=== PATIENT | male | born 1965 | race Caucasian/White ===

== ENCOUNTER 2017-04-24 13:49 | Observation (INO) | payer OTHER ==
[2017-04-24] MEDS ORDERED: MELATONIN 3 MG TABLET PO PRN (16:24)
[2017-04-24] MEDS ORDERED: MAG HYDROX/AL HYDROX/SIMETH 30 ML CUP PO PRN (16:24)
[2017-04-24] MEDS ORDERED: ALPRAZolam 0.25 MG TAB PO PRN (16:24)
[2017-04-24] MEDS ORDERED: NALOXONE 0.4 MG/ML 1 ML VIAL IV PRN (16:24)
[2017-04-24] MEDS ORDERED: ONDANSETRON 4 MG/2 ML VIAL IVP PRN (16:24)
[2017-04-24] MEDS ORDERED: SODIUM CHLORIDE 0.9% 1,000 ML IV SCH (16:30)
[2017-04-24] MEDS ORDERED: HYDROmorphone 1 MG/ML 1 ML SYRINGE IVP PRN (16:53)
[2017-04-24] MEDS ORDERED: TEMAZEPAM 15 MG CAP PO PRN (16:53)
[2017-04-24 16:54] LABS: Basophils % (A) 1 %; CH 34.3; CHCM 35.9; Eosinophils % (A) 0 %; HCT 46.7 % (39.0-53.0); HDW 2.34; HGB 16.2 gm/dL (13.0-17.5); Luc # (Auto) 0.11; Luc % (Auto) 2; Lymphocytes # (A) 1.5 k/uL (1.0-4.8); Lymphocytes % (A) 23 %; MCH 33.1 pg (25.0-35.0); MCHC 34.6 g/dL (31.0-37.0); MCV 95.8 fL (80.0-100.0); Mean Platelet Volume 6.2; Monocytes # (A) 0.2 k/uL (0-1.0); Monocytes % (A) 3 %; Neutrophils # (A) 4.7 k/uL (1.3-7.7); Neutrophils % (A) 72 %; RBC 4.88 m/uL (4.30-5.90); RDW 13.5 % (11.5-15.5); WBC 6.5 k/uL (3.8-10.6); WBC (Perox) 6.03
[2017-04-24] MEDS ORDERED: LORazepam 1 MG TAB PO PRN (17:09)
[2017-04-24] MEDS ORDERED: SUMAtriptan SUCCINATE 50 MG TAB PO PRN (17:09)
[2017-04-24] MEDS ORDERED: CYCLOBENZAPRINE 10 MG TAB PO PRN (17:09)
[2017-04-24 17:19] LABS: ALT 17 U/L (21-72); AST 14 U/L (17-59); Alkaline Phosphatase 99 U/L (38-126); Anion Gap 8 mmol/L; Blood Urea Nitrogen 6 mg/dL (9-20); Carbon Dioxide 26 mmol/L (22-30); Chloride 99 mmol/L (98-107); Glucose 92 mg/dL (74-99); Magnesium 2.1 mg/dL (1.6-2.3); Non-African American GFR(MDRD) >60 (>60 ml/min/1.73 sqM); Phosphorous 3.9 mg/dL (2.5-4.5); Potassium 4.7 mmol/L (3.5-5.1); Sodium 133 mmol/L (137-145); Total Bilirubin 0.6 mg/dL (0.2-1.3); Total Protein 6.9 g/dL (6.3-8.2)
--- NOTE | 2017-04-24 17:27 | CT ---
EXAMINATION TYPE: CT brain wo con DATE OF EXAM: 04/24/2017 COMPARISON: NONE HISTORY: Seizure. CT DLP: 1054.2 mGycm. Automated Exposure Control for Dose Reduction was Utilized. TECHNIQUE: CT scan of the head is performed without contrast. FINDINGS: There is no acute intracranial hemorrhage, mass effect, or midline shift identified. The ventricles and sulci are within normal limits in size. The globes are intact and the visualized sin uses are clear. IMPRESSION: No acute intracranial hemorrhage, mass effect, or midline shift is seen. Unremarkable st udy.
[2017-04-24] MEDS: NICOTINE 14MG/24HR PATCH TRANSDERM SCH (18:00)
[2017-04-24] MEDS: levETIRAcetam 500 MG TAB PO SCH ×2 (18:00→20:37)
[2017-04-24] MEDS: DOCUSATE 100 MG CAP PO SCH (20:34)
[2017-04-24] MEDS: carBAMazepine 300 MG CPMP.12HR PO SCH (20:35)
[2017-04-24] MEDS: HEPARIN SODIUM,PORCINE 5,000 UNIT/ML 1 ML VIAL SQ SCH (20:35)
[2017-04-24] MEDS: ATORVASTATIN 10 MG TAB PO SCH (20:36)
[2017-04-24] MEDS: DONEPEZIL 10 MG TAB PO SCH (20:36)
[2017-04-24] MEDS: MELOXICAM 7.5 MG TAB PO SCH (20:36)
[2017-04-24] MEDS: MEMANTINE 10 MG TAB PO SCH (20:37)
[2017-04-24] MEDS: traZODone HCL 100 MG TAB PO SCH (20:37)
[2017-04-24] MEDS: PREGABALIN 100 MG CAP PO SCH (20:44)
[2017-04-24 21:38] LABS: Appearance,Urine Clear (Clear); Bilirubin,Urine Negative (Negative); Glucose,Urine (UA) Negative (Negative); Ketones,Urine Negative (Negative); Leukocyte Esterase,Urine Negative (Negative); Nitrite,Urine Negative (Negative); Protein,Urine Negative (Negative); Specific Gravity,Urine 1.006 (1.001-1.035); UA Billing (MACRO vs. MICRO) CHEM
[2017-04-25] MEDS: levETIRAcetam 500 MG TAB PO SCH ×5 (05:17→20:39)
--- NOTE | 2017-04-25 08:28 | HP ---
DATE OF ADMISSION: CHIEF COMPLAINT: Vomiting. HISTORY OF PRESENT ILLNESS: This 51-year-old gentleman with a past medical history of multiple medical problems including seizure disorder, history of headaches, history of anxiety, depression, history of hyperlipidemia, being followed Dr. Keesha Prescott and as well as primary neurologist in [facility], presented to [facility] this morning with complaints of vomiting. The patient had multiple episodes of vomiting this morning and the patient's sodium was found to be 124. Because of concerns of SAIDH patient was transferred to [facility] as a direct admission after my discussion with Dr. Rose over the phone. There is no history of fever, rigors, no history of headache, loss of consciousness or seizure. The patient recently had increase of trazodone 25 to 50 mg daily. Otherwise, there is no history of fever, rigors or chills. PAST MEDICAL HISTORY: History of seizure disorder, history of anxiety, depression, history of hyperlipidemia. Medications prior to admission include: 2. Keppra 1000 mg p.o. q.i.d. 3. Celexa 40 mg p.o. daily. 4. Risperdal 0.5 mg q.h.s. 5. Strattera 40 mg p.o. q.h.s. 6. Aricept 10 mg p.o. daily at bedtime. 7. Vitamin D3 2000 daily. 8. Mobic 15 mg p.o. once daily. 9. Latuda 20 mg p.o. daily. 10. Namenda XR 10 mg p.o. b.i.d. 11. Lyrica 100 mg p.o. b.i.d. 12. Flexeril 10 mg q.h.s. p.r.n. 13. Trazodone 100 mg p.o. daily. 14. Colace 100 mg p.o. b.i.d. 15. Sumatriptan 50 mg daily. 16. Ativan 1 mg b.i.d. p.r.n. 17. Simvastatin 20 mg daily. ALLERGIES: None. FAMILY HISTORY: No history of heart disease or strokes in the family. SOCIAL HISTORY: History of smoking. No history of alcohol intake. REVIEW OF SYSTEMS: ENT: No diminishing hearing. No diminished vision. CARDIOVASCULAR: No angina. RESPIRATORY: No cough, hemoptysis. GI: As mentioned earlier. : No dysuria. NERVOUS SYSTEM: No numbness, weakness. ALLERGY/IMMUNOLOGY: No asthma. MUSCULOSKELETAL: As mentioned earlier. HEMATOLOGY/ONCOLOGY: No history of anemia. ENDOCRINE: As mentioned earlier. CONSTITUTIONAL: As mentioned earlier. DERMATOLOGY: Negative. PSYCHIATRY: As mentioned earlier. PHYSICAL EXAMINATION: Patient is alert, oriented x3. Pulse is 53, blood pressure 149/76, respirations 16, temperature 97.9, pulse ox 90% on room air. HEENT: Conjunctivae normal. NECK: No jugular venous distention. CARDIOVASCULAR: S1 and S2, muffled. RESPIRATORY: Breath sounds diminished at the bases. No rhonchi, no crackles. ABDOMEN: Soft, nontender. No mass palpable. LEGS: No edema, no swelling. NERVOUS SYSTEM: Higher function as mentioned. Cranial nerves II through XII grossly intact. Moves all four limbs. No focal motor deficits. LYMPHATIC: No lymphadenopathy in the neck, axillae or groin. SKIN: No ulcer, rash or bleeding. LABS: Awaited. Sodium 124. Previous labs noted. ASSESSMENT: 1. Hyponatremia for evaluation, rule out syndrome of inappropriate antidiuretic hormone secretion. 2. Vomiting, possible acute gastritis. 3. Seizure disorder. 4. Chronic back pain and degenerative joint disease. 5. History of vagus nerve stimulator. 6. History of depression, not otherwise specified. 7. History of nicotine dependence. 8. History of hyperlipidemia. 9. FULL CODE. RECOMMENDATIONS AND DISCUSSION: In this 51-year-old gentleman who presented with multiple complex medical issues, will monitor the patient closely. Symptomatic treatment. Baseline labs. Otherwise, will also get a urine sodium and urine specific gravity. Otherwise, other than that nephrology evaluation. Neurology evaluation. Guarded prognosis. Otherwise, continue to monitor. See orders for details. Will resume the home medication. Further recommendations to follow. MTDD
[2017-04-25] MEDS ORDERED: NON-FORMULARY DRUG (Atomoxetine Hcl [Strattera] 40 MG) PO SCH (09:00)
[2017-04-25 09:03] LABS: Basophils % (A) 0 %; CH 34.4; CHCM 34.9; Eosinophils % (A) 0 %; HCT 48.2 % (39.0-53.0); HDW 2.32; Luc # (Auto) 0.17; Luc % (Auto) 3; Lymphocytes # (A) 1.5 k/uL (1.0-4.8); Lymphocytes % (A) 29 %; MCH 32.9 pg (25.0-35.0); MCHC 33.2 g/dL (31.0-37.0); MCV 99.2 fL (80.0-100.0); Mean Platelet Volume 6.3; Monocytes # (A) 0.3 k/uL (0-1.0); Monocytes % (A) 6 %; Neutrophils # (A) 3.2 k/uL (1.3-7.7); Neutrophils % (A) 62 %; RBC 4.86 m/uL (4.30-5.90); RDW 13.7 % (11.5-15.5); WBC 5.2 k/uL (3.8-10.6); WBC (Perox) 5.19
[2017-04-25 09:29] LABS: Anion Gap 10 mmol/L; Blood Urea Nitrogen 9 mg/dL (9-20); Calcium 8.9 mg/dL (8.4-10.2); Carbon Dioxide 26 mmol/L (22-30); Chloride 102 mmol/L (98-107); Glucose 82 mg/dL (74-99); Non-African American GFR(MDRD) >60 (>60 ml/min/1.73 sqM); Potassium 4.3 mmol/L (3.5-5.1); Sodium 138 mmol/L (137-145)
[2017-04-25] MEDS: carBAMazepine 300 MG CPMP.12HR PO SCH ×2 (09:31→20:37)
[2017-04-25] MEDS: CITALOPRAM HYDROBROMIDE 20 MG TAB PO SCH (09:32)
[2017-04-25] MEDS: NICOTINE 14MG/24HR PATCH TRANSDERM SCH (09:33)
[2017-04-25] MEDS: MEMANTINE 10 MG TAB PO SCH ×2 (09:33→20:39)
[2017-04-25] MEDS: LURASIDONE 40 MG TAB PO SCH (09:33)
[2017-04-25] MEDS: HEPARIN SODIUM,PORCINE 5,000 UNIT/ML 1 ML VIAL SQ SCH ×2 (09:33→20:38)
[2017-04-25] MEDS: PREGABALIN 100 MG CAP PO SCH ×2 (09:34→20:37)
[2017-04-25] MEDS: DOCUSATE 100 MG CAP PO SCH ×2 (09:44→20:38)
[2017-04-25] MEDS: CHOLECALCIFEROL 1,000 UNIT TAB PO SCH (12:42)
--- NOTE | 2017-04-25 14:38 | P.CNNES ---
History of Present Illness Consult date: 04/25/17 Requesting physician: Baldemar Gonzalez Reason for Consult: Seizure Chief complaint: Altered mental status History of Present Illness: Patient is a 51-year-old male who is being consult by neurology for hyponatremia and altered mental status/seizure. Patient was placed on trazodone 100 mg by outside provider. This was increased to 50 mg twice a day. Initially upon increased dosing, the patient began experiencing nausea vomiting and GI discomfort. Patient then reduced dosing to 75 mg on his own and symptoms disappeared. Patient then began titrating back up to the 100 mg dose level and at 100 mg the symptoms returned. Patient was brought to [facility] for evaluation and treatment and then transferred our facility. It was noted that the patient was hyponatremic and has a history of vagal nerve stimulator for seizure history. Patient has a seizure history from his teens and [facility]. She has a [employer]tronic vagal nerve stimulator which was placed in him at approximately age 18. Patient states that the device has not needed emergency activation and he has had no breakthrough seizures. Patient states he does have a minimum of 15 seizures that are managed by the vagal nerve stimulator on a daily basis. He denies numbness tingling, vision changes, disorientation, gait dysfunction or other neurological changes consistent with possible seizure activity. On contact, the patient was supine in bed resting, in no acute distress and alert and oriented 3. Review of Systems Systems not noted in HPI or negative. Past Medical History Past Medical History: Seizure Disorder Additional Past Medical History / Comment(s): last seizure about 1 year ago. chronic back pain History of Any Multi-Drug Resistant Organisms: None Reported Additional Past Surgical History / Comment(s): vagus nerve stimulator placed 1986 Past Anesthesia/Blood Transfusion Reactions: No Reported Reaction Past Psychological History: Depression Smoking Status: Current every day smoker Past Alcohol Use History: None Reported Past Drug Use History: None Reported Medications and Allergies Home Medications Medication Instructions Recorded Confirmed Type Atomoxetine HCl [Strattera] 40 mg PO DAILY 04/24/17 04/25/17 History Cholecalciferol (Vitamin D3) 2,000 units PO DAILY 04/24/17 04/25/17 History [Vitamin D3] Citalopram Hydrobromide [CeleXA] 40 mg PO DAILY 04/24/17 04/25/17 History Cyclobenzaprine [Flexeril] 10 mg PO HS PRN 04/24/17 04/25/17 History Docusate [Colace] 100 mg PO BID 04/24/17 04/25/17 History Donepezil [Aricept] 10 mg PO HS 04/24/17 04/25/17 History LORazepam [Ativan] 1 mg PO BID PRN 04/24/17 04/25/17 History Lurasidone HCl [Latuda] 20 mg PO DAILY 04/24/17 04/25/17 History Meloxicam [Mobic] 15 mg PO HS 04/24/17 04/25/17 History Memantine HCl [Namenda] 10 mg PO BID 04/24/17 04/25/17 History Pregabalin [Lyrica] 100 mg PO BID 04/24/17 04/25/17 History SUMAtriptan SUCCINATE [Imitrex] 50 mg PO BID PRN 04/24/17 04/25/17 History Simvastatin 20 mg PO HS 04/24/17 04/25/17 History carBAMazepine [carBAMazepine ER] 600 mg PO BID 04/24/17 04/25/17 History levETIRAcetam [Keppra] 1,000 mg PO QID 04/25/17 04/25/17 History levETIRAcetam [Keppra] 500 mg PO HS 04/25/17 04/25/17 History traZODone HCL [Desyrel] 100 mg PO HS 04/25/17 04/25/17 History Allergies Allergy/AdvReac Type Severity Reaction Status Date / Time No Known Allergies Allergy Verified 04/25/17 08:46 Physical Examination - Vital Signs Vital Signs: Vital Signs Temp Pulse Resp BP Pulse Ox 04/25/17 07:00 97.7 F 46 L 20 154/72 99 04/24/17 23:00 97.5 F L 44 L 17 125/74 98 04/24/17 15:42 97.1 F L 53 L 16 149/71 96 Intake and Output 04/24/17 04/25/17 04/25/17 22:59 06:59 14:59 Intake Total 520 Balance 520 Intake: Oral 520 Other: Voiding Method Toilet # Voids 1 1 2 Weight 66 kg Constitutional: AOx3, cooperative HEENT: NC/AT, no facial asymmetry is seen. Throat: Supple, no masses Respiratory: No increased work of breathing Cardiac: Regular rate and Rhythm GI: non tender, non distended Musculoskeletal: Tile Installer strengths are equal bilaterally 4/5, Lower extremity strengths are equal bilaterally at 4/5. Left lower extremity muscle atrophy noted on physical exam. Neurological: CN II-XII in tact, patient was AOx3, speech and language are normal, no unilateralizing weakness, no seizure activity note on physical exam. Sensation was normal. Integementary: no rash, no erythema Psychiatric: mood and affect appropriate Results - Laboratory Findings CBC and BMP: 04/25/17 08:08 04/25/17 08:08 Abnormal Lab Findings: Abnormal Labs 04/24/17 16:45 Sodium 133 L BUN 6 L Creatinine 0.60 L AST 14 L ALT 17 L Assessment and Plan (1) Medication adverse effect Status: Acute (2) Electrolyte imbalance Status: Acute (3) Altered mental status Status: Acute (4) Seizure disorder Status: Acute Plan: 1. Medication reaction 2. Electrode imbalancehyponatremia 3. Altered mental status 4. Seizure disorder Patient was prescribed trazodone 100 mg by outside provider. Patient was doing well with trazodone 50 mg but was recently increased to 100 mg. After attempts to implement the 100 mg dosing, patient returned to 75 mg dosing and adverse effects ceased. When patient attempted to increase dosing to recommended 100 mg symptoms returned. Symptoms included nausea vomiting and other GI discomfort. Symptoms are consistent with medication dosing adverse reaction. Electrolyte imbalance hyponatremia: Manage underlying etiology, Nausea vomiting and GI upset. Altered mental status: Appears related to electrolyte imbalance as noted above as well as medication interaction And not related to seizure. Seizure disorder: Patient does have an extensive history of seizure disorder that is actively managed on a regular basis with [facility] as well as implanted vagal nerve stimulator. Rescue device was not implemented on the stimulator, stimulator is functioning appropriately per patient and no breakthrough seizures have occurred. At this time no further neurological workup related to seizure disorder is warranted As patient does not appear to have experienced any seizure activity that has not been controlled by his device. Patient was recommended to follow-up with his normal neurologist once discharged for device interrogation. Patient does utilize Medtronic vagal nerve stimulator. Patient is cleared from a neurological standpoint. Neurology will follow on an as-needed basis while the patient is inpatient. Patient to contact our office if you any questions. I discussed the patient's pertinent medical information with Dr. Minor. He agrees with the plan of care as implemented.
--- NOTE | 2017-04-25 15:40 | CONS ---
DATE OF CONSULTATION: REASON FOR ADMISSION: Vomiting with hyponatremia. The patient is a 51-year-old male with a past medical history significant for seizure, anxiety, depression. Patient on multiple psych and antiseizure medications. He presented to [facility] yesterday with episode of vomiting, was unable to keep anything down. At admission was found to have a sodium of 124. Given his medications history they were concerned for SIADH for which he was transferred further to [facility]. Labs over here showed sodium of 133. Nephrology consultation has been asked for the management of hyponatremia. I did review the patient's labs yesterday and placed orders for urine studies were still not done. Labs this morning are pending. He has been maintained on gentle IV hydration. Although risk for SIADH it seems more related to hypovolemia from his vomiting. He is clinically doing much better. He wants to go home. No overnight events. Tolerated his breakfast today. Outpatient he was recently got his trazodone increased from 25 to 50 mg. At present he is getting carbamazepine, Celexa which all can contribute to SIADH. However, he admits not keeping his free water intake anywhere from 1.2 to 1.5 liters at home. Denies any sick contacts or eating anything from outside. At present feeling at his baseline. No other overnight events. ALLERGIES: No known drug allergies. MEDICATIONS: At present, [place], Maalox, Xanax, Lipitor, carbamazepine, vitamin D3, Celexa, Flexeril, Colace, Aricept, heparin, Dilaudid, Keppra, Ativan, Latuda, melatonin, meloxicam, Namenda, Narcan, Lyrica, sumatriptan, temazepam, trazodone. PAST MEDICAL HISTORY: 1. Seizures. 2. Depression. 3. Anxiety. 4. Hyperlipidemia. 5. Chronic headaches. PAST SURGICAL HISTORY: None per patient. SOCIAL HISTORY: Positive smoking. No alcohol intake. FAMILY HISTORY: No significant family history of kidney problems. REVIEW OF SYSTEMS: Constitutional symptoms: No fever. No chills. Review of other systems negative. Pertinent findings as per history of present illness. PHYSICAL EXAMINATION: VITAL SIGNS: Afebrile, blood pressure 154/72, pulse rate 46 per minute, sats 96 on room air. GENERAL: The patient lying comfortably in bed. No acute distress. LUNGS: Clear to auscultation bilaterally. CARDIOVASCULAR: Regular rate and rhythm. S1, S2. ABDOMEN: Soft, nontender. EXTREMITIES: Bilateral pulses, no edema. LABS: Not done. IMPRESSION: 1. Hypoosmolar hyponatremia, though very high risk for SIADH, clinically seems more related to hypovolemia in the setting of vomiting. Status post IV hydration, sodium improved from 124 to 133 yesterday. Repeat labs pending today. 2. Incidental bradycardia noted. Recommend monitoring. No triggering factors. Can consider cardiology evaluation. 3. History of seizures stable at present and okay to continue antiseizure medications at present. RECOMMENDATIONS: 1. Check BMP today. If sodium stable or continues to improve, from nephro standpoint patient can be discharged any time. 2. Encourage the patient to have free water restriction 1.2 to 1.5 liters at home given high risk SIADH. 3. If the patient is discharged today, recommend follow-up BMP in 2 to 3 days to make sure sodium continues to remain stable. Thank you, Dr. Gonzalez for allowing me to participate in this patient. We will follow the patient along with you.
[2017-04-25] MEDS: traZODone HCL 100 MG TAB PO SCH (20:36)
[2017-04-25] MEDS: DONEPEZIL 10 MG TAB PO SCH (20:38)
[2017-04-25] MEDS: ATORVASTATIN 10 MG TAB PO SCH (20:38)
[2017-04-25] MEDS: MELOXICAM 7.5 MG TAB PO SCH (20:39)
[2017-04-25] MEDS: HYDROcodone/APAP 5-325MG 1 EACH TAB PO PRN (20:45)
[2017-04-26 00:46] VITALS: PULSE 51
[2017-04-26] MEDS: levETIRAcetam 500 MG TAB PO SCH ×4 (05:29→14:05)
[2017-04-26 07:37] VITALS: BP 175/80; RESP 18; TEMP 97.3
[2017-04-26] MEDS: MEMANTINE 10 MG TAB PO SCH (08:09)
[2017-04-26] MEDS: CITALOPRAM HYDROBROMIDE 20 MG TAB PO SCH (08:09)
[2017-04-26] MEDS: carBAMazepine 300 MG CPMP.12HR PO SCH (08:09)
[2017-04-26] MEDS: DOCUSATE 100 MG CAP PO SCH ×2 (08:09→08:15)
[2017-04-26] MEDS: NICOTINE 14MG/24HR PATCH TRANSDERM SCH (08:09)
[2017-04-26] MEDS: LURASIDONE 40 MG TAB PO SCH (08:10)
[2017-04-26] MEDS: HEPARIN SODIUM,PORCINE 5,000 UNIT/ML 1 ML VIAL SQ SCH (08:11)
[2017-04-26] MEDS: PREGABALIN 100 MG CAP PO SCH (08:18)
[2017-04-26] MEDS: HYDROcodone/APAP 5-325MG 1 EACH TAB PO PRN ×2 (08:18→12:12)
[2017-04-26 08:49] LABS: Basophils # (A) 0.1 k/uL (0-0.2); Basophils % (A) 1 %; CH 34.4; CHCM 36.1; Eosinophils % (A) 0 %; HCT 48.4 % (39.0-53.0); Luc # (Auto) 0.09; Luc % (Auto) 2; Lymphocytes # (A) 1.5 k/uL (1.0-4.8); Lymphocytes % (A) 28 %; MCH 33.5 pg (25.0-35.0); MCHC 35.1 g/dL (31.0-37.0); MCV 95.6 fL (80.0-100.0); Mean Platelet Volume 6.5; Monocytes # (A) 0.2 k/uL (0-1.0); Monocytes % (A) 4 %; Neutrophils # (A) 3.5 k/uL (1.3-7.7); Neutrophils % (A) 66 %; RBC 5.07 m/uL (4.30-5.90); RDW 13.4 % (11.5-15.5); WBC 5.3 k/uL (3.8-10.6); WBC (Perox) 5.42
[2017-04-26 09:01] LABS: Anion Gap 12 mmol/L; Blood Urea Nitrogen 11 mg/dL (9-20); Calcium 9.6 mg/dL (8.4-10.2); Carbon Dioxide 26 mmol/L (22-30); Chloride 101 mmol/L (98-107); Glucose 146 mg/dL (74-99); Non-African American GFR(MDRD) >60 (>60 ml/min/1.73 sqM); Potassium 4.2 mmol/L (3.5-5.1); Sodium 139 mmol/L (137-145)
[2017-04-26] MEDS: CHOLECALCIFEROL 1,000 UNIT TAB PO SCH (11:41)
--- NOTE | 2017-04-26 15:23 | PN ---
DATE OF SERVICE: 04/26/2017 This 51-year-old gentleman who was admitted with hyponatremia also had vomiting present on admission. No chest pain, no palpitations. No fever. Neurology and nephrology evaluation in progress at this time. Clinically he was thought to have more of hypovolemia. Sinus bradycardia was also noted. No chest pain, no palpitations. No fever. On exam, alert and oriented x3. Pulse 51, blood pressure 176/91, respirations 16, temperature 98 degrees, pulse ox 91% on room air. HEENT: Conjunctivae normal. NECK: No jugular venous distention. CARDIOVASCULAR: S1 and S2, muffled. RESPIRATORY: Breath sounds diminished at the bases. No rhonchi, no crackles. ABDOMEN: Soft, nontender. LEGS: No edema, no swelling. NERVOUS SYSTEM: No focal deficits. LABS: Sodium 138 and CBC within normal limits. ASSESSMENT: 1. Hyponatremia possibly hypoosmolar and hypovolemic. Syndrome of inappropriate antidiuretic hormone secretion unlikely per Nephrology. 2. Vomiting possibly acute gastritis. 3. Seizure disorder. 4. History of back pain, degenerative joint disease. 5. History of vagus nerve stimulator. 6. History of depression not otherwise specified. 7. Remote history of nicotine dependence. 8. History of hyperlipidemia. 9. FULL CODE. 10. Sinus bradycardia. RECOMMENDATIONS AND DISCUSSION: I recommend to continue the current medications, continue monitoring and symptomatic treatment. Otherwise, repeat labs in the morning. Continue the rest of medications. Closely follow with Nephrology. Guarded prognosis. Further recommendations to follow.
--- NOTE | 2017-04-27 09:34 | DS ---
DATE OF ADMISSION: 04/24/2017 DATE OF DISCHARGE: 04/26/2017 FINAL DIAGNOSES: 1. Hyponatremia, possibly hypovolemic, unlikely to be secondary to syndrome of inappropriate antidiuretic hormone per nephrology. 2. Vomiting, possible acute gastritis. 3. History of seizure disorder. 4. Chronic back pain, degenerative joint disease. 5. History of vagus nerve stimulator. 6. History of depression not otherwise specified. 7. History of nicotine dependence. 8. History of hyperlipidemia. 9. FULL CODE. DISCHARGE DISPOSITION: The patient will be discharged in stable condition with guarded prognosis. HISTORY OF PRESENT ILLNESS: This 51-year-old gentleman with a past medical history of multiple medical problems being followed Dr. Keesha Prescott and was admitted with vomiting. The patient's sensorium low at 134. Improved significantly with volume correction. On exam, vital signs stable. CARDIOVASCULAR SYSTEM: S1, S2 muffled. ABDOMEN: Soft. Nervous system: Mentioned earlier. Nephrology saw the patient. Sodium is 138. DISCHARGE ADVICE AND MEDICATIONS: 1. Diet is cardiac. 2. Activity limited until follow-up. 3. Follow up with Dr. Keesha Prescott in 2 to 3 days. 4. Follow up with neurologist as recommended. 5. Neurologist for adjustment of the seizure medications. 6. Other medications are Strattera 40 mg p.o. daily. 7. Carbamazepine 600 mg p.o. b.i.d. 8. Vitamin D3 2000 daily. 9. Celexa 40 mg daily. 10. Flexeril 10 mg at bedtime p.r.n. 11. Colace 100 mg p.o. b.i.d. 12. Aricept 10 mg q.h.s. 13. Keppra 500 mg q.h.s. and 1000 mg q.i.d. 14. Ativan 1 mg p.o. b.i.d. p.r.n. 15. Latuda 20 mg p.o. daily. 16. Mobic 15 mg q.h.s. 17. Namenda 10 mg p.o. b.i.d. 18. Habitrol 14 daily. 19. Lyrica 100 mg p.o. b.i.d. 20. Simvastatin 20 mg q.h.s. 21. Imitrex 50 mg b.i.d. p.r.n. 22. Desyrel 100 mg p.o. q.h.s. 23. [facility] Dr. Keesha Prescott.
== END 2017-04-26 14:09 | disposition home or self-care (01) ==
LOC: INTOOBSV 15:34 → 4MS4W 15:34
PROVIDERS: ADMIT Hospitalist; ATTEND Hospitalist
DX: E87.0 Hyperosmolality and hypernatremia (principal); R11.10 Vomiting, unspecified; R41.82 Altered mental status, unspecified; G40.909 Epilepsy, unspecified, not intractable, without status epilepticus; M54.9 Dorsalgia, unspecified; F32.9 Major depressive disorder, single episode, unspecified; E78.5 Hyperlipidemia, unspecified; F17.210 Nicotine dependence, cigarettes, uncomplicated; R00.1 Bradycardia, unspecified; G89.29 Other chronic pain; F41.9 Anxiety disorder, unspecified; Z79.899 Other long term (current) drug therapy; F45.42 Pain disorder with related psychological factors
CPT/HCPCS: 96360; 96361 ×2; 96372 ×3; 84300; 80053; 80048 ×2; 83735; 84100; 85025 ×3; 81003; 70450; G0379; G0378 ×3; S4990 ×2; J1644 ×3

== ENCOUNTER → 2017-09-21 | Outpatient (CLI) | payer OTHER ==
--- NOTE | 2017-09-21 16:25 | CT ---
EXAMINATION TYPE: CT lumbar spine wo con DATE OF EXAM: 09/21/2017 COMPARISON: NONE HISTORY: Low back pain CT DLP: 966 mGycm CONTRAST: No contrast TECHNIQUE: CT of the lumbar spine is performed on a spiral scan at 3 mm thick sections. Reconstructed images are performed in the coronal and sagittal planes. FINDINGS: T12-L1: No focal disc herniation or significant disc bulge is evident. No spinal canal stenosis or neural foraminal stenosis is present. L1-L2: No focal disc herniation or significant disc bulge is evident. No spinal canal stenosis or n eural foraminal stenosis is present L2-L3: No focal disc herniation or significant disc bulge is evident. No spinal canal stenosis or n eural foraminal stenosis is present L3-L4: Minimal disc bulge is present with anterior thecal sac flattening. No AP spinal canal stenosis is present. The neural foramen are patent. L4-L5: There is loss of disc height to this level. Sclerosis is present from endplate changes. Some e ndplate spurring extends into the spinal canal with moderate anterior thecal sac compression. Facet h ypertrophy and ligamentum flavum laxity are present contributing to spinal canal narrowing. Borderlin e spinal canal stenosis is posterior to the superior endplate of L5. Neural foramen appear patent L5-S1: There is narrowing of disc height. Some mild posterior endplate spurring is present. Some asso ciated disc material is present centrally with anterior thecal sac contact. No spinal canal stenosis is present. Neural foramen are patent. There is straightening of the vertebral body alignment in the sagittal plane. Vacuum disc phenomenon is present L4-5 L5-S1. IMPRESSION: 1. Advanced degenerative disc changes with endplate changes at L4-5. Some mild spinal canal stenosis from endplate spurring associated disc material and ligamentum flavum laxity is present at the L4-5 l evel. 2. Mild disc bulging centrally and endplate spurring at L5-S1 without spinal canal stenosis.
== END | disposition home or self-care (01) ==
LOC: RADCTMAIN 13:54
PROVIDERS: ATTEND Psychiatry & Neurology Neurology
DX: M48.061 Spinal stenosis, lumbar region without neurogenic claudication (principal); M51.27 Other intervertebral disc displacement, lumbosacral region; M47.816 Spondylosis without myelopathy or radiculopathy, lumbar region
CPT/HCPCS: 72131

== ENCOUNTER → 2018-10-11 | Outpatient (CLI) | payer OTHER ==
--- NOTE | 2018-10-11 15:51 | CT ---
EXAMINATION TYPE: CT brain ray duong DATE OF EXAM: 10/11/2018 COMPARISON: 04/24/2017 HISTORY: neck pain X many years, hx of seizures. CT DLP: [address] of the brain was performed. The ventricles, basal cisterns and sulci overlying the cerebral convexities demonstrate mildly enlarg ement. There is no evidence for intracranial hemorrhage or sulcal effacement. There is decreased attenuatio n about the periventricular white matter and deep white matter of both cerebral hemispheres, compatib le with chronic small vessel ischemia. No mass effects are seen. If symptoms persist consider MRI. Osseous calvarium is intact. IMPRESSION: 1. Age related atrophic and chronic small vessel ischemic change without acute intracranial process seen at this time. CT Cervical Spine: Unenhanced CT of the cervical spine was performed with bone and soft tissue window settings submitted . Coronal and sagittal reconstruction is obtained. There is normal alignment and prevertebral soft tissues. No evidence for acute cervical fracture . Mo derate degenerative disc space narrowing extending from C3-4 through C6-7. Grade 1 retrolisthesis of C3 on C4 measuring 1.6 mm in related to degenerative change of the cervical apophyseal joints. Rene listhesis of C5 on C6 measuring 1.8 mm. No evidence for central stenosis. No disc herniations. Mild f oraminal encroachment bilaterally at C6-7. IMPRESSION: 1. No evidence for acute fracture or subluxation of the cervical spine.
== END | disposition home or self-care (01) ==
LOC: RADCTMAIN 15:11
PROVIDERS: ATTEND Psychiatry & Neurology Neurology
DX: G31.9 Degenerative disease of nervous system, unspecified (principal); I67.82 Cerebral ischemia; R56.9 Unspecified convulsions; M54.2 Cervicalgia
CPT/HCPCS: 70450; 72125

== ENCOUNTER 2020-07-08 09:26 | Emergency (ER) | payer OTHER ==
[2020-07-08 09:31] VITALS: BP 171/78; PULSE 50; RESP 18; TEMP 97.4
[2020-07-08] MEDS ORDERED: levETIRAcetam IV 500 MG in SODIUM CHLORIDE 0.9% 100 ML IVPB STA (09:52)
[2020-07-08] MEDS ORDERED: DIPH,PERTUS(ACELL)TETVAC-LF 0.5 ML VIAL IM ONE (09:52)
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
[2020-07-08 10:26] LABS: Basophils % (A) 1 %; Eosinophils % (A) 0 %; HCT 43.2 % (39.0-53.0); HGB 14.6 gm/dL (13.0-17.5); Lymphocytes # (A) 0.8 k/uL (1.0-4.8); Lymphocytes % (A) 9 %; MCH 31.8 pg (25.0-35.0); MCHC 33.9 g/dL (31.0-37.0); MCV 93.9 fL (80.0-100.0); Mean Platelet Volume 8.5; Monocytes # (A) 0.4 k/uL (0-1.0); Monocytes % (A) 4 %; Neutrophils # (A) 7.5 k/uL (1.3-7.7); Neutrophils % (A) 85 %; Platelet Count 129 k/uL (150-450); RDW 13.4 % (11.5-15.5); WBC 8.8 k/uL (3.8-10.6)
[2020-07-08 10:33] LABS: Appearance,Urine Clear (Clear); Bilirubin,Urine Negative (Negative); Blood,Urine Negative (Negative); Color,Urine Light Yellow; Glucose,Urine (UA) Negative (Negative); Ketones,Urine Negative (Negative); Leukocyte Esterase,Urine Negative (Negative); Nitrite,Urine Negative (Negative); PH, Urine 5.5 (5.0-8.0); Protein,Urine Negative (Negative); Specific Gravity,Urine 1.007 (1.001-1.035); Urobilinogen,Urine <2.0 mg/dL (<2.0)
[2020-07-08 10:36] LABS: ALT 17 U/L (4-49); AST 24 U/L (17-59); African American GFR (CKD) >90 (>60 ml/min/1.73 sqM); Albumin 3.8 g/dL (3.5-5.0); Alcohol <10 mg/dL; Alkaline Phosphatase 70 U/L (38-126); Anion Gap 6 mmol/L; Blood Urea Nitrogen 12 mg/dL (9-20); Calcium 8.5 mg/dL (8.4-10.2); Carbon Dioxide 23 mmol/L (22-30); Chloride 109 mmol/L (98-107); Creatine Kinase 179 U/L (55-170); Glucose 97 mg/dL (74-99); Non-African American GFR(CKD) >90 (>60 ml/min/1.73 sqM); Sodium 138 mmol/L (137-145); Total Bilirubin 0.4 mg/dL (0.2-1.3)
[2020-07-08 10:41] LABS: Valproic Acid (Depakene) <10.0 ug/mL
[2020-07-08 10:42] LABS: Amphetamine Screen,Urine Not Detected (NotDetected); Barbiturate Screen,Urine Not Detected (NotDetected); Benzodiazepines Screen,Urine Not Detected (NotDetected); Cocaine Screen,Urine Not Detected (NotDetected); Methadone Screen, Urine Not Detected (NotDetected); Opiate Screen,Urine Not Detected (NotDetected); Oxycodone Screen, Urine Not Detected (NotDetected); Phencyclidine Screen,Urine Not Detected (NotDetected); Tricyclic Antidepressant,Urine Not Detected (NotDetected); Urn Cannabinoid Scrn Detected (NotDetected)
[2020-07-08 10:51] LABS: Partial Thromboplastin Time 24.7 sec (22.0-30.0); Prothrombin Time 9.9 sec (9.0-12.0)
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
== END 2020-07-08 13:05 | disposition left against medical advice (07) ==
LOC: EC 09:26
DX: S02.31XA Fracture of orbital floor, right side, initial encounter for closed fracture (principal); S00.31XA Abrasion of nose, initial encounter; S80.212A Abrasion, left knee, initial encounter; S20.312A Abrasion of left front wall of thorax, initial encounter; G40.909 Epilepsy, unspecified, not intractable, without status epilepticus; F32.9 Major depressive disorder, single episode, unspecified; Z79.899 Other long term (current) drug therapy; Z23 Encounter for immunization; F17.200 Nicotine dependence, unspecified, uncomplicated; Z53.29 Procedure and treatment not carried out because of patient's decision for other reasons; V47.5XXA Car driver injured in collision with fixed or stationary object in traffic accident, initial encounter; Y93.89 Activity, other specified; Y92.410 Unspecified street and highway as the place of occurrence of the external cause
CPT/HCPCS: 99291; 96365; 96366; 90471; 36415; 93005; 86900; 86901; 80164; 80053; 82550; 84484; 85025; 85610; 85730; 86850; 81003; 80306; 80320; 72170; 71045; 72125; 70450; 71260; 74177; 90715; J0690; J1953; Q9967